=== PATIENT | female | born 1965 | race Caucasian/White ===

== ENCOUNTER → 2020-09-12 | Outpatient (CLI) | payer OTHER ==
[~2020-09-12] VITALS: Ht 157.5 cm; Wt 88.5 kg
[~2020-09-12] MED LIST: BENADRYL 25MG C25 MG PO; BIOTIN PO; CALAN 40MG TABL40 MG PO; COQ10 PO; EMGALITY120 MG/1 M INJ; ESTRADIOL1 EAC4 TOP; FLOMAX 0.4 MG0.4 MG PO; FOLIC ACID1 MG PO; IMITREX100 MG PO; IMITREX50 MG PO; LEVOTHYROXINE50 MC1 PO; MELATONIN10 M2 PO; METHOTREXATE T2.5 MG PO; MIRALAX 119 GR119 GM PO; ORENCIA INFUSION IV; PERCOCET 5-3251 EACH PO; PIROXICAM10 MG PO; PROGESTERONE200 MG PO; PROTONIX40 MG PO; SUPER B COMPLE1 EAC1 PO; TYLENOL 8 HOUR650 MG PO; ULTRAM50 MG PO; VENLAFAXINE HCL75 MG PO; VITAMIN D3 PO; ZOCOR10 MG PO; ZOFRAN 4 MG TAB4 MG PO
== END ==
LOC: OPSV 09-03 11:00
DX: M06.9 Rheumatoid arthritis, unspecified (principal)
CPT/HCPCS: 96365; 96374; 96375; J0129; J1720

== ENCOUNTER → 2020-10-10 | Outpatient (CLI) | payer OTHER ==
[~2020-10-10] VITALS: Ht 157.5 cm; Wt 88.5 kg
[2020-10-10 08:22] LABS: HEMOGLOBIN 12.3 gm/dl (12.3-15.3); RED BLOOD COUNT 4.24 M/UL (4.00-5.10); WHITE BLOOD COUNT 7.7 K/UL (4.5-11.0)
[2020-10-10 08:41] LABS: BUN/CREATININE RATIO 15 (0-10)
== END ==
LOC: OPSV 07:32
PROVIDERS: Internal Medicine
DX: M06.9 Rheumatoid arthritis, unspecified (principal); Z79.899 Other long term (current) drug therapy
CPT/HCPCS: 36415; 80053; 85025; 96365; 96375; J0129; J1720

== ENCOUNTER → 2020-11-14 | Outpatient (CLI) | payer OTHER | LOC: OPSV 11-07 07:00 | DX: M06.9 Rheumatoid arthritis, unspecified (principal); Z88.1 Allergy status to other antibiotic agents; Z88.5 Allergy status to narcotic agent; Z88.8 Allergy status to other drugs, medicaments and biological substances | CPT/HCPCS: 96365; 96375; J0129; J1720 ==

== ENCOUNTER → 2020-12-12 | Outpatient (CLI) | payer OTHER ==
[~2020-12-12] VITALS: Ht 157.5 cm; Wt 88.5 kg
== END ==
LOC: OPSV 08:00
DX: M06.9 Rheumatoid arthritis, unspecified (principal)
CPT/HCPCS: 96365; 96375; J0129; J1720

== ENCOUNTER → 2021-01-09 | Outpatient (CLI) | payer OTHER ==
[~2021-01-09] VITALS: Ht 157.5 cm; Wt 88.5 kg
== END ==
LOC: OPSV 08:00
DX: M06.9 Rheumatoid arthritis, unspecified (principal)
CPT/HCPCS: 96365; 96375; J0129; J1720

== ENCOUNTER → 2021-01-31 | Outpatient (CLI) | payer OTHER ==
[2021-01-31 09:53] LABS: HEMOGLOBIN 12.9 gm/dl (12.3-15.3); RED BLOOD COUNT 4.14 M/UL (4.00-5.10); WHITE BLOOD COUNT 6.1 K/UL (4.5-11.0)
[2021-01-31 10:25] LABS: BUN/CREATININE RATIO 9 (0-10)
[2021-02-01 08:14] LABS: VITAMIN D, 25-HYDROXY 43.6 ng/mL (30.0-100.0)
== END ==
LOC: LAB 09:05
PROVIDERS: Internal Medicine
DX: M05.79 Rheumatoid arthritis with rheumatoid factor of multiple sites without organ or systems involvement (principal); R53.83 Other fatigue; K21.9 Gastro-esophageal reflux disease without esophagitis; E78.5 Hyperlipidemia, unspecified; R73.01 Impaired fasting glucose; E55.9 Vitamin D deficiency, unspecified; Z79.899 Other long term (current) drug therapy; Z57.8 Occupational exposure to other risk factors
CPT/HCPCS: 36415; 80053; 80061; 82607; 83036; 84439; 84443; 85025

== ENCOUNTER → 2021-02-28 | Outpatient (CLI) | payer OTHER ==
[~2021-02-28] VITALS: Ht 157.5 cm; Wt 88.5 kg
== END ==
LOC: OPSV 02-20 11:00
DX: M06.9 Rheumatoid arthritis, unspecified (principal)
CPT/HCPCS: 96365; 96375; J0129; J1720

== ENCOUNTER → 2021-03-31 | Outpatient (CLI) | payer OTHER ==
[~2021-03-31] VITALS: Ht 157.5 cm; Wt 88.5 kg
== END ==
LOC: OPSV 07:34
DX: M06.9 Rheumatoid arthritis, unspecified (principal)
CPT/HCPCS: 96365; 96375; J0129; J1720

== ENCOUNTER → 2021-04-07 | Outpatient (CLI) | payer OTHER | LOC: RAD 13:05 | DX: N20.0 Calculus of kidney (principal); R14.3 Flatulence | CPT/HCPCS: 74018 ==

== ENCOUNTER → 2021-05-05 | Outpatient (CLI) | payer OTHER ==
[~2021-05-05] VITALS: Ht 157.5 cm; Wt 88.5 kg
== END ==
LOC: OPSV 04-28 08:00
DX: M06.9 Rheumatoid arthritis, unspecified (principal)
CPT/HCPCS: 96365; 96375; J0129; J1720

== ENCOUNTER → 2021-06-13 | Outpatient (CLI) | payer OTHER ==
[~2021-06-13] VITALS: Ht 157.5 cm; Wt 88.5 kg
== END ==
LOC: OPSV 06-02 08:00
DX: M06.9 Rheumatoid arthritis, unspecified (principal)
CPT/HCPCS: 96365; 96375; J0129; J1720

== ENCOUNTER → 2021-06-26 | Outpatient (CLI) | payer OTHER | LOC: EXRD 15:40 | DX: M06.9 Rheumatoid arthritis, unspecified (principal); M25.561 Pain in right knee; M19.90 Unspecified osteoarthritis, unspecified site | CPT/HCPCS: 73564; 73630 ==

== ENCOUNTER → 2021-07-07 | Outpatient (CLI) | payer OTHER ==
[~2021-07-07] VITALS: Ht 157.5 cm; Wt 88.5 kg
[2021-07-07 11:42] LABS: WHITE BLOOD COUNT 9.7 K/UL (4.5-11.0)
== END ==
LOC: OPSV 11:10
PROVIDERS: Internal Medicine
DX: M06.9 Rheumatoid arthritis, unspecified (principal)
CPT/HCPCS: 80053; 85025; 96365

== ENCOUNTER → 2021-08-04 | Outpatient (CLI) | payer OTHER ==
[~2021-08-04] VITALS: Ht 157.5 cm; Wt 88.5 kg
== END ==
LOC: OPSV 08:00
DX: M06.9 Rheumatoid arthritis, unspecified (principal)
CPT/HCPCS: 96365

== ENCOUNTER → 2021-09-09 | Outpatient (CLI) | payer OTHER ==
[~2021-09-09] VITALS: Ht 157.5 cm; Wt 88.5 kg
[2021-09-09 08:29] LABS: HEMOGLOBIN 13.4 gm/dl (12.3-15.3); RED BLOOD COUNT 4.02 M/UL (4.00-5.10); WHITE BLOOD COUNT 11.2 K/UL (4.5-11.0)
[2021-09-09 08:47] LABS: BUN/CREATININE RATIO 11 (0-10)
== END ==
LOC: OPSV 07:52
PROVIDERS: Internal Medicine
DX: M06.9 Rheumatoid arthritis, unspecified (principal); R53.83 Other fatigue; K21.9 Gastro-esophageal reflux disease without esophagitis; R31.9 Hematuria, unspecified; E78.5 Hyperlipidemia, unspecified; I10 Essential (primary) hypertension; R73.01 Impaired fasting glucose; E55.9 Vitamin D deficiency, unspecified; Z79.899 Other long term (current) drug therapy; Z51.81 Encounter for therapeutic drug level monitoring
CPT/HCPCS: 36415; 80053; 80061; 82607; 82746; 83036; 84439; 84443; 85025; 87086; 96365

== ENCOUNTER → 2021-10-07 | Outpatient (CLI) | payer OTHER ==
[~2021-10-07] VITALS: Ht 157.5 cm; Wt 88.5 kg
== END ==
LOC: OPSV 09-05 08:00
DX: M06.9 Rheumatoid arthritis, unspecified (principal)
CPT/HCPCS: 96365

== ENCOUNTER → 2021-11-04 | Outpatient (CLI) | payer OTHER ==
[~2021-11-04] VITALS: Ht 157.5 cm; Wt 88.5 kg
[2021-11-04 09:22] LABS: HEMOGLOBIN 13.1 gm/dl (12.3-15.3); RED BLOOD COUNT 3.92 M/UL (4.00-5.10)
[2021-11-05 10:12] LABS: HBSAG SCREEN Negative (Negative); HCV ANTIBODY <0.1 (0.0-0.9); HEPATITIS B SURF AB QUANT <3.1 mIU/mL (Immunity>9.9)
[2021-11-06 21:07] LABS: QUANTIFERON MITOGEN VALUE >10.00 IU/mL (.); QUANTIFERON NIL VALUE 0.04 IU/mL (.); QUANTIFERON TB1 AG VALUE 0.02 IU/mL (.); QUANTIFERON TB2 AG VALUE 0.03 IU/mL (.); QUANTIFERON-TB GOLD PLUS Negative (Negative)
== END ==
LOC: OPSV 08:00
PROVIDERS: Internal Medicine
DX: D72.829 Elevated white blood cell count, unspecified (principal); M06.9 Rheumatoid arthritis, unspecified; M19.90 Unspecified osteoarthritis, unspecified site; M25.549 Pain in joints of unspecified hand; Z79.899 Other long term (current) drug therapy
CPT/HCPCS: 80053; 85025; 85652; 86317; 86704; 86803; 87340; 96365

== ENCOUNTER → 2021-12-02 | Outpatient (CLI) | payer OTHER ==
[~2021-12-02] VITALS: Ht 157.5 cm; Wt 88.5 kg
== END ==
LOC: OPSV 07:54
DX: M06.9 Rheumatoid arthritis, unspecified (principal)
CPT/HCPCS: 96365

== ENCOUNTER 2021-12-24 17:25 | Emergency (ER) | payer OTHER ==
[2021-12-24 18:37] LABS: HEMOGLOBIN 14.9 gm/dl (12.3-15.3); RED BLOOD COUNT 4.32 M/UL (4.00-5.10); WHITE BLOOD COUNT 9.7 K/UL (4.5-11.0)
[2021-12-24 19:05] LABS: BUN/CREATININE RATIO 18 (0-10)
[2021-12-24] MEDS ORDERED: ZOFRAN ODT 4 MG4 MG GT (21:15)
== END 2021-12-24 21:23 | disposition home or self-care (01) ==
LOC: ER1 17:25
PROVIDERS: Family Medicine
DX: K52.9 Noninfective gastroenteritis and colitis, unspecified (principal); E86.0 Dehydration; Z87.442 Personal history of urinary calculi; Z88.8 Allergy status to other drugs, medicaments and biological substances
CPT/HCPCS: 71045; 80053; 81001; 82550; 82553; 83605; 83690; 84484; 85025; 93005; 96361; 96374; 96375; 99284; J2270; J2405; J7030

== ENCOUNTER → 2021-12-30 | Outpatient (CLI) | payer OTHER ==
[~2021-12-30] VITALS: Ht 157.5 cm; Wt 88.5 kg
[~2021-12-30] MED LIST changes: +ZOFRAN ODT 4 MG4 MG GT
== END ==
LOC: OPSV 08:00
DX: M06.9 Rheumatoid arthritis, unspecified (principal)
CPT/HCPCS: 96365

== ENCOUNTER → 2021-12-31 | Outpatient (CLI) | payer OTHER | LOC: KOH-I 09:25 | DX: J32.9 Chronic sinusitis, unspecified (principal) | CPT/HCPCS: 70486 ==

== ENCOUNTER → 2022-01-27 | Outpatient (CLI) | payer OTHER ==
[~2022-01-27] VITALS: Ht 157.5 cm; Wt 88.5 kg
== END ==
LOC: OPSV 08:00
DX: M06.9 Rheumatoid arthritis, unspecified (principal)
CPT/HCPCS: 96365

== ENCOUNTER → 2022-03-02 | Day surgery (SDC) | payer OTHER ==
[~2022-03-02] MED LIST changes: +BACLOFEN10 MG PO; +BUSPIRONE HCL15 MG PO; +CYMBALTA60 MG PO; +DICLOFENAC; +DOXYCYCLINE MO100 MG PO; +HYDROXYZINE HCL25 MG PO; +NURTEC ODT75 MG PO; +PREDNISONE 5 MG5 MG PO; +PREDNISONE20 MG PO; +QULIPTA60 MG PO
== END | disposition home or self-care (01) ==
LOC: OR 06:16
DX: J32.9 Chronic sinusitis, unspecified (principal); J34.2 Deviated nasal septum; J34.3 Hypertrophy of nasal turbinates; G47.33 Obstructive sleep apnea (adult) (pediatric); E78.5 Hyperlipidemia, unspecified; K21.9 Gastro-esophageal reflux disease without esophagitis; M06.9 Rheumatoid arthritis, unspecified; E03.9 Hypothyroidism, unspecified; F41.9 Anxiety disorder, unspecified; F32.A Depression, unspecified; Z99.89 Dependence on other enabling machines and devices; Z79.891 Long term (current) use of opiate analgesic; Z79.899 Other long term (current) drug therapy; Z88.1 Allergy status to other antibiotic agents; Z88.5 Allergy status to narcotic agent; Z88.8 Allergy status to other drugs, medicaments and biological substances
CPT/HCPCS: C1726; J1100; J1170; J2001; J2405; J2704; J3010

== ENCOUNTER → 2022-03-11 | Outpatient (CLI) | payer OTHER | LOC: KOH-I 13:21 | DX: M54.51 Vertebrogenic low back pain (principal); M47.816 Spondylosis without myelopathy or radiculopathy, lumbar region | CPT/HCPCS: 72100 ==

== ENCOUNTER → 2022-03-24 | Outpatient (CLI) | payer OTHER ==
[~2022-03-24] VITALS: Ht 157.5 cm; Wt 83.5 kg
== END ==
LOC: OPSV 11:00
DX: M06.9 Rheumatoid arthritis, unspecified (principal)
CPT/HCPCS: 96365